=== PATIENT | female | born 1950 | race Caucasian/White ===

== ENCOUNTER 2022-05-29 08:59 | Outpatient (CLI) | payer OTHER, SELFPAY | END 2022-05-29 09:00 | disposition home or self-care (01) | LOC: WOUND 08:59 | PROVIDERS: Family Provider Family Medicine; PCP Family Medicine; Visit Provider Physician Assistant Surgical | DX: I87.312 Chronic venous hypertension (idiopathic) with ulcer of left lower extremity (principal); I87.2 Venous insufficiency (chronic) (peripheral); I89.0 Lymphedema, not elsewhere classified; L97.829 Non-pressure chronic ulcer of other part of left lower leg with unspecified severity | CPT/HCPCS: 99213 ==

== ENCOUNTER 2022-06-19 08:03 | Outpatient (CLI) | payer OTHER, SELFPAY | END 2022-06-19 08:04 | disposition home or self-care (01) | LOC: WOUND 08:03 | PROVIDERS: Visit Provider Physician Assistant Surgical | DX: I87.312 Chronic venous hypertension (idiopathic) with ulcer of left lower extremity (principal); I89.0 Lymphedema, not elsewhere classified; L97.822 Non-pressure chronic ulcer of other part of left lower leg with fat layer exposed | CPT/HCPCS: 11042 ==

== ENCOUNTER 2022-07-10 08:55 | Outpatient (CLI) | payer OTHER, SELFPAY | END 2022-07-10 08:56 | disposition home or self-care (01) | LOC: WOUND 08:56 | PROVIDERS: Visit Provider Physician Assistant Surgical | DX: I87.312 Chronic venous hypertension (idiopathic) with ulcer of left lower extremity (principal); L97.822 Non-pressure chronic ulcer of other part of left lower leg with fat layer exposed | CPT/HCPCS: 11042 ==

== ENCOUNTER 2022-07-28 08:46 | Outpatient (CLI) | payer OTHER, SELFPAY | END 2022-07-28 08:47 | disposition home or self-care (01) | LOC: WOUND 08:46 | PROVIDERS: Visit Provider Nurse Practitioner Family | DX: I87.312 Chronic venous hypertension (idiopathic) with ulcer of left lower extremity (principal); L97.822 Non-pressure chronic ulcer of other part of left lower leg with fat layer exposed; I87.2 Venous insufficiency (chronic) (peripheral); L97.812 Non-pressure chronic ulcer of other part of right lower leg with fat layer exposed | CPT/HCPCS: 11042 ==

== ENCOUNTER 2022-08-18 08:57 | Outpatient (CLI) | payer OTHER, SELFPAY | END 2022-08-18 08:58 | disposition home or self-care (01) | LOC: WOUND 08:57 | PROVIDERS: Visit Provider Nurse Practitioner Family | DX: I87.312 Chronic venous hypertension (idiopathic) with ulcer of left lower extremity (principal); L97.825 Non-pressure chronic ulcer of other part of left lower leg with muscle involvement without evidence of necrosis | CPT/HCPCS: 11042 ==

== ENCOUNTER 2022-09-08 08:53 | Outpatient (CLI) | payer OTHER, SELFPAY | END 2022-09-08 08:54 | disposition home or self-care (01) | LOC: WOUND 08:53 | PROVIDERS: PCP Family Medicine; Visit Provider Physician Assistant Surgical | DX: I87.312 Chronic venous hypertension (idiopathic) with ulcer of left lower extremity (principal); L97.825 Non-pressure chronic ulcer of other part of left lower leg with muscle involvement without evidence of necrosis | CPT/HCPCS: 11043 ==

== ENCOUNTER 2022-09-29 08:45 | Outpatient (CLI) | payer OTHER, SELFPAY | END 2022-09-29 08:46 | disposition home or self-care (01) | LOC: WOUND 08:46 | PROVIDERS: PCP Family Medicine; Visit Provider Nurse Practitioner Family | DX: I87.312 Chronic venous hypertension (idiopathic) with ulcer of left lower extremity (principal); L97.825 Non-pressure chronic ulcer of other part of left lower leg with muscle involvement without evidence of necrosis | CPT/HCPCS: 15271; Q4151 ==

== ENCOUNTER 2022-10-20 09:09 | Outpatient (CLI) | payer OTHER, SELFPAY | END 2022-10-20 09:10 | disposition home or self-care (01) | LOC: WOUND 09:09 | PROVIDERS: PCP Family Medicine; Visit Provider Nurse Practitioner Family | DX: I87.312 Chronic venous hypertension (idiopathic) with ulcer of left lower extremity (principal); L97.822 Non-pressure chronic ulcer of other part of left lower leg with fat layer exposed; I87.2 Venous insufficiency (chronic) (peripheral) | CPT/HCPCS: 11042 ==

== ENCOUNTER 2022-11-03 09:16 | Outpatient (CLI) | payer OTHER, SELFPAY | END 2022-11-03 09:17 | disposition home or self-care (01) | LOC: WOUND 09:16 | PROVIDERS: PCP Family Medicine; Visit Provider Nurse Practitioner Family | DX: I87.312 Chronic venous hypertension (idiopathic) with ulcer of left lower extremity (principal); L97.822 Non-pressure chronic ulcer of other part of left lower leg with fat layer exposed | CPT/HCPCS: 97597 ==

== ENCOUNTER 2022-11-17 08:53 | Outpatient (CLI) | payer OTHER, SELFPAY | END 2022-11-17 08:54 | disposition home or self-care (01) | LOC: WOUND 08:53 | PROVIDERS: PCP Family Medicine; Visit Provider Nurse Practitioner Family | DX: I87.312 Chronic venous hypertension (idiopathic) with ulcer of left lower extremity (principal); L97.822 Non-pressure chronic ulcer of other part of left lower leg with fat layer exposed | CPT/HCPCS: 11042 ==

== ENCOUNTER 2022-12-01 08:51 | Outpatient (CLI) | payer OTHER, SELFPAY | END 2022-12-01 08:52 | disposition home or self-care (01) | LOC: WOUND 08:51 | PROVIDERS: PCP Family Medicine; Visit Provider Nurse Practitioner Family | DX: I87.312 Chronic venous hypertension (idiopathic) with ulcer of left lower extremity (principal); L97.822 Non-pressure chronic ulcer of other part of left lower leg with fat layer exposed; I87.2 Venous insufficiency (chronic) (peripheral); I89.0 Lymphedema, not elsewhere classified | CPT/HCPCS: 11042 ==

== ENCOUNTER 2022-12-15 08:49 | Outpatient (CLI) | payer OTHER, SELFPAY | END 2022-12-15 08:50 | disposition home or self-care (01) | LOC: WOUND 08:49 | PROVIDERS: PCP Family Medicine; Visit Provider Nurse Practitioner Family | DX: I87.312 Chronic venous hypertension (idiopathic) with ulcer of left lower extremity (principal); I87.2 Venous insufficiency (chronic) (peripheral); L97.822 Non-pressure chronic ulcer of other part of left lower leg with fat layer exposed; I89.0 Lymphedema, not elsewhere classified | CPT/HCPCS: 97597 ==

== ENCOUNTER 2023-01-05 09:24 | Outpatient (CLI) | payer OTHER, SELFPAY | END 2023-01-05 09:25 | disposition home or self-care (01) | LOC: WOUND 09:24 | PROVIDERS: PCP Family Medicine; Visit Provider Physician Assistant Surgical | DX: I87.312 Chronic venous hypertension (idiopathic) with ulcer of left lower extremity (principal); L97.822 Non-pressure chronic ulcer of other part of left lower leg with fat layer exposed; I89.0 Lymphedema, not elsewhere classified | CPT/HCPCS: 11042 ==

== ENCOUNTER 2023-01-26 09:23 | Outpatient (CLI) | payer OTHER, SELFPAY ==
[2023-01-26 11:14] LABS: Hemoglobin A1C* 5.63 % (0-5.6)
[2023-01-26 11:38] LABS: Free T4 Free Thyroxine* 2.38 ng/dL (0.70-1.85)
[2023-01-26 11:56] LABS: Ferritin* 20.1 ng/mL (11.1-264.0)
[2023-01-27 14:44] LABS: Thyroid Peroxidase (TPO) Ab 22.9 IU/mL (0.0-9.0)
[2023-01-27 15:03] LABS: Thyroglobulin Antibody <0.9 IU/mL (0.0-4.0); Thyroglobulin, Serum or Plasma 14.7 ng/mL (1.3-31.8)
[2023-01-27 15:04] LABS: Thyroglob Bill Billed
[2023-01-27 18:28] LABS: Prealbumin 12.6 mg/dL (20.0-40.0)
[2023-01-28 07:12] LABS: Free T3 1.3 pg/mL (2.5-4.3)
[2023-01-28 07:20] LABS: Zinc, Serum/Plasma 64.3 ug/dL (60.0-120.0)
[2023-01-29 16:23] LABS: T3 Reverse - LC-MS/MS 46.4 ng/dL (9.0-27.0); T3, Ratio (T3:RT3) 0.7 (4.2-11.0); T3, Total - LC-MS/MS 33 ng/dL (80-200)
== END 2023-01-26 09:24 | disposition home or self-care (01) ==
LOC: WOUND 09:23
PROVIDERS: PCP Family Medicine; Visit Provider Nurse Practitioner Family
DX: I87.312 Chronic venous hypertension (idiopathic) with ulcer of left lower extremity (principal); E11.622 Type 2 diabetes mellitus with other skin ulcer; L97.825 Non-pressure chronic ulcer of other part of left lower leg with muscle involvement without evidence of necrosis; I89.0 Lymphedema, not elsewhere classified; E03.9 Hypothyroidism, unspecified; D69.3 Immune thrombocytopenic purpura; E60 Dietary zinc deficiency
CPT/HCPCS: 11042; 36415; 82728; 83036; 84134; 84432; 84439; 84480; 84481; 84482; 84630; 86376; 86800

== ENCOUNTER 2023-02-02 13:01 | Outpatient (CLI) | payer OTHER, SELFPAY | END 2023-02-02 13:02 | disposition home or self-care (01) | LOC: WOUND 13:01 | PROVIDERS: PCP Family Medicine; Visit Provider Nurse Practitioner Family | DX: I87.312 Chronic venous hypertension (idiopathic) with ulcer of left lower extremity (principal); L97.829 Non-pressure chronic ulcer of other part of left lower leg with unspecified severity; I87.2 Venous insufficiency (chronic) (peripheral); E03.9 Hypothyroidism, unspecified; E60 Dietary zinc deficiency; E61.1 Iron deficiency; E44.1 Mild protein-calorie malnutrition; Z68.41 Body mass index [BMI] 40.0-44.9, adult | CPT/HCPCS: 99213 ==

== ENCOUNTER 2023-02-15 14:55 | Outpatient (CLI) | payer OTHER, SELFPAY ==
--- NOTE | 2023-02-15 15:00 | CRLHL7_ITS ---
For Patients: As a result of the Cures Act, medical imaging exams and procedure reports are released immediately into your electronic medical record. You may view this report before your referring provider. If you have questions, please contact your health care provider. INDICATION: Nonhealing ulcer of left lower extremity. TECHNIQUE: The bilateral lower extremity arteries were examined per exam specific protocol. Ultrasound performed using real-time hayes scale imaging (B-mode 2D), color-flow Doppler and spectral analysis. Peak systolic velocities (PSV), Doppler waveform quality and velocity ratios if applicable, were documented at sites per exam specific protocol. COMPARISON: Doppler ultrasound dated 03/26/22 FINDINGS: RIGHT: BRANCH ADMINISTRATOR: 149 cm/sec; triphasic waveforms PFA: 111 cm/sec; triphasic waveforms SFA PROX: 108 cm/sec; triphasic waveforms SFA MID: 103 cm/sec; triphasic waveforms SFA DIST: 100 cm/sec; triphasic waveforms POP: 94 cm/sec; triphasic waveforms PROPERTY AND SUPPLY OFFICER: 71 cm/sec; triphasic waveforms Peroneal: 54 cm/sec; triphasic waveforms DHIRAJ: 22 cm/sec; monophasic waveforms, previously multiphasic with velocity similar to the posterior tibial and peroneal arteries. DPA: 22 cm/sec; monophasic waveforms LEFT: BRANCH ADMINISTRATOR: 124 cm/sec; triphasic waveforms PFA: 81 cm/sec; triphasic waveforms SFA PROX: 116 cm/sec; triphasic waveforms SFA MID: 94 cm/sec; triphasic waveforms SFA DIST: 89 cm/sec; triphasic waveforms POP: 91 cm/sec; triphasic waveforms PROPERTY AND SUPPLY OFFICER: 78 cm/sec; triphasic waveforms Peroneal: Not seen, unchanged from 2021. DHIRAJ: 29 cm/sec; biphasic waveforms DPA: 20 cm/sec; triphasic waveforms IMPRESSION: 1. On the right, no evidence of arterial occlusion. No sonographic evidence of hemodynamically significant stenosis. Waveforms in the anterior tibial artery were previously multiphasic and are now monophasic otherwise no change from examination in March 2022. 2. On the left, nonvisualization of peroneal artery is unchanged from 2021. Otherwise, no evidence of arterial occlusion or hemodynamically significant stenosis. Dictated by Dylan Zayas MD @ 02/16/2023 11:24:31 AM (Electronically Signed)
== END 2023-02-15 14:56 | disposition home or self-care (01) ==
LOC: US 14:55
PROVIDERS: PCP Family Medicine; Visit Provider Nurse Practitioner Family
DX: L97.909 Non-pressure chronic ulcer of unspecified part of unspecified lower leg with unspecified severity (principal)
CPT/HCPCS: 93926

== ENCOUNTER 2023-02-16 09:18 | Outpatient (CLI) | payer OTHER, SELFPAY | END 2023-02-16 09:19 | disposition home or self-care (01) | LOC: WOUND 09:18 | PROVIDERS: PCP Family Medicine; Visit Provider Nurse Practitioner Family | DX: I87.312 Chronic venous hypertension (idiopathic) with ulcer of left lower extremity (principal); L97.825 Non-pressure chronic ulcer of other part of left lower leg with muscle involvement without evidence of necrosis | CPT/HCPCS: 11042 ==

== ENCOUNTER 2023-03-02 09:22 | Outpatient (CLI) | payer OTHER, SELFPAY | END 2023-03-02 09:23 | disposition home or self-care (01) | LOC: WOUND 09:22 | PROVIDERS: PCP Family Medicine; Visit Provider Nurse Practitioner Family | DX: I87.312 Chronic venous hypertension (idiopathic) with ulcer of left lower extremity (principal); L97.822 Non-pressure chronic ulcer of other part of left lower leg with fat layer exposed; I87.2 Venous insufficiency (chronic) (peripheral); I89.0 Lymphedema, not elsewhere classified | CPT/HCPCS: 11042 ==

== ENCOUNTER 2023-04-13 08:50 | Outpatient (CLI) | payer OTHER, SELFPAY | END 2023-04-13 08:51 | disposition home or self-care (01) | LOC: WOUND 08:50 | PROVIDERS: PCP Family Medicine; Visit Provider Nurse Practitioner Family | DX: I87.312 Chronic venous hypertension (idiopathic) with ulcer of left lower extremity (principal); L97.825 Non-pressure chronic ulcer of other part of left lower leg with muscle involvement without evidence of necrosis; L97.222 Non-pressure chronic ulcer of left calf with fat layer exposed | CPT/HCPCS: 11042; 11043; 99211 ==

== ENCOUNTER 2023-04-20 09:46 | Outpatient (CLI) | payer OTHER, SELFPAY | END 2023-04-20 09:47 | disposition home or self-care (01) | LOC: WOUND 09:47 | PROVIDERS: PCP Family Medicine; Visit Provider Nurse Practitioner Family | DX: L97.825 Non-pressure chronic ulcer of other part of left lower leg with muscle involvement without evidence of necrosis; I87.312 Chronic venous hypertension (idiopathic) with ulcer of left lower extremity; I89.0 Lymphedema, not elsewhere classified | CPT/HCPCS: 11042 ==

== ENCOUNTER 2023-05-18 08:49 | Outpatient (CLI) | payer OTHER, SELFPAY | END 2023-05-18 08:50 | disposition home or self-care (01) | LOC: WOUND 08:49 | PROVIDERS: PCP Family Medicine; Visit Provider Nurse Practitioner Family | DX: I87.312 Chronic venous hypertension (idiopathic) with ulcer of left lower extremity (principal); L97.825 Non-pressure chronic ulcer of other part of left lower leg with muscle involvement without evidence of necrosis | CPT/HCPCS: 11043 ==

== ENCOUNTER 2023-06-08 08:46 | Outpatient (CLI) | payer OTHER, SELFPAY | END 2023-06-08 08:47 | disposition home or self-care (01) | LOC: WOUND 08:47 | PROVIDERS: PCP Family Medicine; Visit Provider Nurse Practitioner Family | DX: I87.312 Chronic venous hypertension (idiopathic) with ulcer of left lower extremity (principal); L97.825 Non-pressure chronic ulcer of other part of left lower leg with muscle involvement without evidence of necrosis | CPT/HCPCS: 11043 ==

== ENCOUNTER 2023-06-29 08:45 | Outpatient (CLI) | payer OTHER, SELFPAY | END 2023-06-29 08:46 | disposition home or self-care (01) | LOC: WOUND 08:45 | PROVIDERS: PCP Family Medicine; Visit Provider Nurse Practitioner Family | DX: I87.312 Chronic venous hypertension (idiopathic) with ulcer of left lower extremity (principal); L97.825 Non-pressure chronic ulcer of other part of left lower leg with muscle involvement without evidence of necrosis; I89.0 Lymphedema, not elsewhere classified | CPT/HCPCS: 11042 ==

== ENCOUNTER 2023-07-20 08:53 | Outpatient (CLI) | payer OTHER, SELFPAY | END 2023-07-20 08:54 | disposition home or self-care (01) | LOC: WOUND 08:53 | PROVIDERS: PCP Family Medicine; Visit Provider Nurse Practitioner Family | DX: I87.312 Chronic venous hypertension (idiopathic) with ulcer of left lower extremity (principal); L97.822 Non-pressure chronic ulcer of other part of left lower leg with fat layer exposed; I89.0 Lymphedema, not elsewhere classified | CPT/HCPCS: 11042 ==

== ENCOUNTER 2023-08-10 09:22 | Outpatient (CLI) | payer OTHER, SELFPAY | END 2023-08-10 09:23 | disposition home or self-care (01) | LOC: WOUND 09:22 | PROVIDERS: PCP Family Medicine; Visit Provider Nurse Practitioner Family | DX: I87.312 Chronic venous hypertension (idiopathic) with ulcer of left lower extremity (principal); E11.622 Type 2 diabetes mellitus with other skin ulcer; L97.822 Non-pressure chronic ulcer of other part of left lower leg with fat layer exposed; I89.0 Lymphedema, not elsewhere classified | CPT/HCPCS: 11042 ==

== ENCOUNTER 2023-08-31 08:53 | Outpatient (CLI) | payer OTHER, SELFPAY | END 2023-08-31 08:54 | disposition home or self-care (01) | LOC: WOUND 08:53 | PROVIDERS: PCP Family Medicine; Visit Provider Nurse Practitioner Family | DX: I87.312 Chronic venous hypertension (idiopathic) with ulcer of left lower extremity (principal); L97.822 Non-pressure chronic ulcer of other part of left lower leg with fat layer exposed | CPT/HCPCS: 97597 ==

== ENCOUNTER 2023-09-21 08:56 | Outpatient (CLI) | payer OTHER, SELFPAY | END 2023-09-21 08:57 | disposition home or self-care (01) | LOC: WOUND 08:56 | PROVIDERS: PCP Family Medicine; Visit Provider Family Medicine | DX: I87.312 Chronic venous hypertension (idiopathic) with ulcer of left lower extremity (principal); L97.822 Non-pressure chronic ulcer of other part of left lower leg with fat layer exposed | CPT/HCPCS: 97597 ==

== ENCOUNTER 2023-10-12 08:55 | Outpatient (CLI) | payer OTHER, SELFPAY | END 2023-10-12 08:56 | disposition home or self-care (01) | LOC: WOUND 08:55 | PROVIDERS: PCP Family Medicine; Visit Provider Nurse Practitioner Family | DX: I87.312 Chronic venous hypertension (idiopathic) with ulcer of left lower extremity (principal); L97.822 Non-pressure chronic ulcer of other part of left lower leg with fat layer exposed; I89.0 Lymphedema, not elsewhere classified | CPT/HCPCS: 97597 ==

== ENCOUNTER 2023-11-02 08:52 | Outpatient (CLI) | payer OTHER, SELFPAY | END 2023-11-02 08:53 | disposition home or self-care (01) | LOC: WOUND 08:52 | PROVIDERS: PCP Family Medicine; Visit Provider Family Medicine | DX: I87.312 Chronic venous hypertension (idiopathic) with ulcer of left lower extremity (principal); I87.2 Venous insufficiency (chronic) (peripheral); L97.822 Non-pressure chronic ulcer of other part of left lower leg with fat layer exposed | CPT/HCPCS: 11042 ==

== ENCOUNTER 2023-11-23 09:03 | Outpatient (CLI) | payer OTHER, SELFPAY | END 2023-11-23 09:04 | disposition home or self-care (01) | LOC: WOUND 09:04 | PROVIDERS: PCP Family Medicine; Visit Provider Nurse Practitioner Family | DX: I87.312 Chronic venous hypertension (idiopathic) with ulcer of left lower extremity (principal); L97.822 Non-pressure chronic ulcer of other part of left lower leg with fat layer exposed | CPT/HCPCS: 97597 ==

== ENCOUNTER 2023-12-21 09:01 | Outpatient (CLI) | payer OTHER, SELFPAY | END 2023-12-21 09:02 | disposition home or self-care (01) | LOC: WOUND 09:01 | PROVIDERS: PCP Family Medicine; Visit Provider Physician Assistant | DX: I87.312 Chronic venous hypertension (idiopathic) with ulcer of left lower extremity (principal); E11.622 Type 2 diabetes mellitus with other skin ulcer; L97.822 Non-pressure chronic ulcer of other part of left lower leg with fat layer exposed; Z79.84 Long term (current) use of oral hypoglycemic drugs | CPT/HCPCS: 97597 ==

== ENCOUNTER 2023-12-28 10:30 | Outpatient (RCR) | payer OTHER, SELFPAY | END 2024-04-26 23:59 | disposition home or self-care (01) | PROVIDERS: PCP Family Medicine; Visit Provider Nurse Practitioner Family | DX: I89.0 Lymphedema, not elsewhere classified (principal); L98.499 Non-pressure chronic ulcer of skin of other sites with unspecified severity; Z51.89 Encounter for other specified aftercare | CPT/HCPCS: 97140; 97165; 97535 ==

== ENCOUNTER 2024-01-18 09:01 | Outpatient (CLI) | payer OTHER, SELFPAY | END 2024-01-18 09:02 | disposition home or self-care (01) | LOC: WOUND 09:01 | PROVIDERS: PCP Family Medicine; Visit Provider Nurse Practitioner Family | DX: I87.312 Chronic venous hypertension (idiopathic) with ulcer of left lower extremity (principal); I87.2 Venous insufficiency (chronic) (peripheral); L97.822 Non-pressure chronic ulcer of other part of left lower leg with fat layer exposed; I89.0 Lymphedema, not elsewhere classified | CPT/HCPCS: 11042 ==

== ENCOUNTER 2024-03-14 08:49 | Outpatient (CLI) | payer OTHER, SELFPAY | END 2024-03-14 08:50 | disposition home or self-care (01) | LOC: WOUND 08:49 | PROVIDERS: PCP Family Medicine; Visit Provider Nurse Practitioner Family | DX: I87.312 Chronic venous hypertension (idiopathic) with ulcer of left lower extremity (principal); I87.2 Venous insufficiency (chronic) (peripheral); L97.822 Non-pressure chronic ulcer of other part of left lower leg with fat layer exposed | CPT/HCPCS: 97597 ==

== ENCOUNTER 2024-04-11 08:48 | Outpatient (CLI) | payer OTHER, SELFPAY | END 2024-04-11 08:49 | disposition home or self-care (01) | LOC: WOUND 08:48 | PROVIDERS: PCP Family Medicine; Visit Provider Nurse Practitioner Family | DX: I87.312 Chronic venous hypertension (idiopathic) with ulcer of left lower extremity (principal); I87.2 Venous insufficiency (chronic) (peripheral); L97.822 Non-pressure chronic ulcer of other part of left lower leg with fat layer exposed | CPT/HCPCS: 97597 ==

== ENCOUNTER 2024-05-01 13:10 | Outpatient (CLI) | payer OTHER, SELFPAY | END 2024-05-01 13:11 | disposition home or self-care (01) | LOC: WOUND 13:10 | PROVIDERS: PCP Family Medicine; Visit Provider Nurse Practitioner Family | DX: I87.312 Chronic venous hypertension (idiopathic) with ulcer of left lower extremity (principal); I87.2 Venous insufficiency (chronic) (peripheral); L97.822 Non-pressure chronic ulcer of other part of left lower leg with fat layer exposed | CPT/HCPCS: 97597 ==

== ENCOUNTER 2024-05-23 10:23 | Outpatient (CLI) | payer OTHER, SELFPAY | END 2024-05-23 10:24 | disposition home or self-care (01) | LOC: WOUND 10:23 | PROVIDERS: PCP Family Medicine; Visit Provider Nurse Practitioner Family | DX: I87.312 Chronic venous hypertension (idiopathic) with ulcer of left lower extremity (principal); I87.2 Venous insufficiency (chronic) (peripheral); L97.822 Non-pressure chronic ulcer of other part of left lower leg with fat layer exposed | CPT/HCPCS: 97597 ==

== ENCOUNTER 2024-06-13 09:29 | Outpatient (CLI) | payer OTHER, SELFPAY | END 2024-06-13 09:30 | disposition home or self-care (01) | LOC: WOUND 09:29 | PROVIDERS: PCP Family Medicine; Visit Provider Nurse Practitioner Family | DX: I87.312 Chronic venous hypertension (idiopathic) with ulcer of left lower extremity (principal); I87.2 Venous insufficiency (chronic) (peripheral); L97.822 Non-pressure chronic ulcer of other part of left lower leg with fat layer exposed | CPT/HCPCS: 11042 ==

== ENCOUNTER 2024-07-04 09:42 | Outpatient (CLI) | payer OTHER, SELFPAY | END 2024-07-04 09:43 | disposition home or self-care (01) | LOC: WOUND 09:42 | PROVIDERS: PCP Family Medicine; Visit Provider Nurse Practitioner Family | DX: I87.312 Chronic venous hypertension (idiopathic) with ulcer of left lower extremity (principal); L97.828 Non-pressure chronic ulcer of other part of left lower leg with other specified severity; I89.0 Lymphedema, not elsewhere classified | CPT/HCPCS: 11042 ==

== ENCOUNTER 2024-08-22 13:49 | Outpatient (CLI) | payer OTHER, SELFPAY | END 2024-08-22 13:50 | disposition home or self-care (01) | LOC: WOUND 13:49 | PROVIDERS: PCP Family Medicine; Visit Provider Nurse Practitioner Family | DX: I87.312 Chronic venous hypertension (idiopathic) with ulcer of left lower extremity (principal); I87.2 Venous insufficiency (chronic) (peripheral); I89.0 Lymphedema, not elsewhere classified; L97.822 Non-pressure chronic ulcer of other part of left lower leg with fat layer exposed | CPT/HCPCS: 97597 ==

== ENCOUNTER 2024-09-19 13:59 | Outpatient (CLI) | payer OTHER, SELFPAY | END 2024-09-19 14:00 | disposition home or self-care (01) | LOC: WOUND 13:59 | PROVIDERS: PCP Family Medicine; Visit Provider Family Medicine | DX: I87.312 Chronic venous hypertension (idiopathic) with ulcer of left lower extremity (principal); I87.2 Venous insufficiency (chronic) (peripheral); I89.0 Lymphedema, not elsewhere classified; E11.622 Type 2 diabetes mellitus with other skin ulcer; L97.828 Non-pressure chronic ulcer of other part of left lower leg with other specified severity | CPT/HCPCS: 11042 ==

== ENCOUNTER 2024-09-26 09:25 | Outpatient (CLI) | payer OTHER, SELFPAY | END 2024-09-26 09:26 | disposition home or self-care (01) | LOC: WOUND 09:25 | PROVIDERS: PCP Family Medicine; Visit Provider Nurse Practitioner Family | DX: I87.312 Chronic venous hypertension (idiopathic) with ulcer of left lower extremity (principal); I87.2 Venous insufficiency (chronic) (peripheral); I89.0 Lymphedema, not elsewhere classified; L97.828 Non-pressure chronic ulcer of other part of left lower leg with other specified severity | CPT/HCPCS: 11042 ==

== ENCOUNTER 2024-10-03 09:27 | Outpatient (CLI) | payer OTHER, SELFPAY | END 2024-10-03 09:28 | disposition home or self-care (01) | LOC: WOUND 09:27 | PROVIDERS: PCP Family Medicine; Visit Provider Nurse Practitioner Family | DX: I87.312 Chronic venous hypertension (idiopathic) with ulcer of left lower extremity (principal); I87.2 Venous insufficiency (chronic) (peripheral); I89.0 Lymphedema, not elsewhere classified; L97.828 Non-pressure chronic ulcer of other part of left lower leg with other specified severity | CPT/HCPCS: 97597 ==

== ENCOUNTER 2024-10-10 09:25 | Outpatient (CLI) | payer OTHER, SELFPAY | END 2024-10-10 09:26 | disposition home or self-care (01) | LOC: WOUND 09:25 | PROVIDERS: PCP Family Medicine; Visit Provider Nurse Practitioner Family | DX: Z48.00 Encounter for change or removal of nonsurgical wound dressing (principal); I87.312 Chronic venous hypertension (idiopathic) with ulcer of left lower extremity; I87.2 Venous insufficiency (chronic) (peripheral); I89.0 Lymphedema, not elsewhere classified; L97.822 Non-pressure chronic ulcer of other part of left lower leg with fat layer exposed | CPT/HCPCS: G0463 ==

== ENCOUNTER 2024-11-06 15:18 | Outpatient (CLI) | payer OTHER, SELFPAY | END 2024-11-06 15:19 | disposition home or self-care (01) | PROVIDERS: PCP Family Medicine; Visit Provider Nurse Practitioner Family | DX: I87.312 Chronic venous hypertension (idiopathic) with ulcer of left lower extremity (principal); I87.2 Venous insufficiency (chronic) (peripheral); I89.0 Lymphedema, not elsewhere classified; L97.822 Non-pressure chronic ulcer of other part of left lower leg with fat layer exposed | CPT/HCPCS: 11042 ==

== ENCOUNTER 2024-11-27 09:31 | Outpatient (CLI) | payer MEDICARE, BC, SELFPAY ==
--- OUTSIDE RECORDS SUMMARY | 2024-11-09 15:43 | XMS_ITS | Clinical Summary ---
Author Organization [facility] Address [place], [place] [address] Care Team Providers Care Thread Spooler Name Role Phone [facility] Jermaine Fong Unavailable Neetu Villa MD Unavailable [phone] Krystyna Monique NP Unavailable Jolynn Shaffer DO Primary Care Provider [phone] Allergies Active Allergy Reactions Criticality Noted Date Comments Blood-Group Specific Substance Other - Describe In Comment Field 01/07/2022 Patient has a Suggestive Warm Auto-antibody. Blood products may be delayed. Draw patient 24 hours prior to transfusion. For [facility] testing, draw one red top and two purple top tubes for all Type and Screen orders. Metoprolol Other - Describe In Comment Field 07/23/2023 Gait Imbalance Sulfamethoxazole-Trim ethoprim GI Upset 03/25/2021 Medications blood-glucose meterIndications:T ype 2 diabetes mellitus without complication, without long-term current use of insulin (HC) Prefers True Meter Air. but if not covered, please Dispense meter covered by pts insurance. 1 Each 024 Active blood sugar diagnostic (True Metrix Glucose Test Strip) stripIndications:T ype 2 diabetes mellitus without complication, without long-term current use of insulin (HC) TEST 1 TIME PER DAY AND NEEDED BASED ON SYMPTOMS. 200 Each 3 024 Active flecainide (TAMBOCOR) 50 mg tabletIndications: Persistent atrial fibrillation (HC) Take 1 Tablet (50 mg) by mouth every 12 hours. 180 Tablet 3 024 Active famotidine (PEPCID) 20 mg tabletIndications: Gastric acidity TAKE ONE TABLET BY MOUTH TWICE A DAY 180 Tablet 2 024 Active furosemide (LASIX) 20 mg tabletIndications: Swelling of lower extremity TAKE ONE TABLET BY MOUTH EVERY DAY NEEDED FOR INCREASED LOWER EXTREMITY EDEMA OR WEIGHT GAIN 90 Tablet 1 024 Active Additional Information Patient taking differently: 20 mg Oral Q AM, (No instructions reported), Reported on 11/07/2024 levothyroxine (SYNTHROID) 88 mcg tabletIndications: Acquired hypothyroidism Take 1 Tablet (88 mcg) by mouth before breakfast. 90 Tablet 1 024 Active rosuvastatin (CRESTOR) 20 mg tabletIndications: Mixed hyperlipidemia Take 1 Tablet (20 mg) by mouth at bedtime. 90 Tablet 1 024 Active spironolactone (ALDACTONE) 50 mg tabletIndications: Hepatic cirrhosis, unspecified hepatic cirrhosis type, unspecified whether ascites present (HC) Take 1 Tablet (50 mg) by mouth once daily in the morning. 90 Tablet 1 024 Active folic acid 1 mg tabletIndications: Chronic ITP (idiopathic thrombocytopenia) (HC),Christian's syndrome (HC) Take 1 Tablet (1 mg) by mouth once daily. 30 Tablet 11 024 Active metFORMIN (GLUCOPHAGE XR) 500 mg Extended-Release tabletIndications: Type 2 diabetes mellitus without complication, without long-term current use of insulin (HC) TAKE ONE TABLET BY MOUTH EVERY DAY WITH A MEAL 90 Tablet 024 Active lactulose 10 gram/15 mL solutionIndication s:Hepatic cirrhosis, unspecified hepatic cirrhosis type, unspecified whether ascites present (HC) Take 15 mL (10 g) by mouth four times daily. Goal is to have 3 loose stools per day, can adjust the dose accordingly. You may take an additional 2 doses daily if you there is no loose stools. 946 mL 2 024 Active midodrine (PROAMATINE) 5 mg tabletIndications: Other cirrhosis of liver (HC) Take 1 Tablet (5 mg) by mouth three times daily. 90 Tablet 3 Active lactulose 10 gram/15 mL solutionIndication s:Hepatic cirrhosis, unspecified hepatic cirrhosis type, unspecified whether ascites present (HC) Take 15 mL (10 g) by mouth three times daily. Goal is to have 3 loose stools per day, can adjust the dose accordingly. 946 mL 07/25/20 5:24 PM CDT 2023 Discontinued apixaban (ELIQUIS) 5 mg tabletIndications: prevent thromboembolism in chronic atrial fibrillation Take 1 Tablet (5 mg) by mouth two times daily. 180 Tablet 1 2023 Discontinued(* IP Discontinued) cephalexin 500 mg capsuleIndications :urinary tract infection Take 1 Capsule (500 mg) by mouth two times daily for 3 days. 6 Capsule 2023 Active Problems Problem Noted Date Diagnosed Date Other cirrhosis of liver 10/19/2024 Acute cystitis without hematuria 10/18/2024 Acute renal insufficiency 07/23/2024 Pancytopenia 07/23/2024 Sepsis with acute organ dysfunction without sept ic shock 07/22/2024 Sepsis secondary to UTI 07/22/2024 Moderate dementia 07/22/2024 Non-pressure chronic ulcer o f other part of left lower leg with muscle involvement without evidence of necrosis 05/04/2024 Acute cystitis with hematuria 03/14/2024 Hypokalemia 03/14/2024 Anemia 10/25/2023 Iron deficiency 09/28/2023 Venous stasis ulcer of other part of left lower leg with varicose veins, unspecified ulcer stage 02/11/2023 Morbid obesity 02/11/2023 Pacemaker 04/16/2022 Lymphedema 03/15/2022 Immune thrombocytopenia s/p bone marrow biopsy 0 03/15/2022 Atrial fibrillation 01/30/2022 Thrombocyte disorder 01/30/2022 Atrial flutter 01/06/2022 HTN (hypertension) 01/06/2022 Type 2 diabetes mellitus wit hout complication, without long-term current use of insulin 01/06/2022 Acquired hypothyroidism 01/06/2022 Chronic ITP (idiopathic thrombocytopenia) Pelvic hematoma, female Encounters Date Type Department Care Team Description 11/09/2024 Refill [facility] [address] [place] [address] Neetu Villa MD Refill Request (Folic Acid) 11/07/2024 11:57 AM CERTIFIED DRUG COUNSELOR - 11/07/2024 11:59 PM CERTIFIED DRUG COUNSELOR Hospital Encounter [facility] [address] [place] [address] Urinary tract infection without hematuria, site unspecified 11/07/2024 10:45 AM CERTIFIED DRUG COUNSELOR Office Visit [facility] [address] [place] [address] Krystyna Monique, LUIS Follow Up (ITP) 11/07/2024 Travel 11/06/2024 Telephone [facility] [address] [place] [address] Krystyna Monique, OLERICULTURE TEACHER Appointment 11/02/2024 9:24 AM CERTIFIED DRUG COUNSELOR - 11/02/2024 11:59 PM CERTIFIED DRUG COUNSELOR Hospital Encounter [facility] [address] [place] [address] Neetu Villa MD Chronic ITP (idiopathic thrombocytopenia) (HC); Christian's syndrome (HC) 11/02/2024 Travel 10/31/2024 8:52 AM CERTIFIED DRUG COUNSELOR - 10/31/2024 11:59 PM CERTIFIED DRUG COUNSELOR Hospital Encounter [facility] [address] [place] [address] Category 3 mammography result with short follow-up interval suggested for probably benign finding 10/31/2024 Travel 10/30/2024 Telephone [facility] [place] [address] [place] [phone] Gerardo Brooks MD Care Coordination 10/27/[address] [address] Jolynn Shaffer, DO Results 10/26/2024 9:45 AM CERTIFIED DRUG COUNSELOR Office Visit [place] [address] [place] [address] Jolynn Shaffer DO Hospital F/U (10/18/2024 - 10/22/2024) 10/26/2024 Travel 10/23/2024 Patient Outreach [facility] [address] [place] [address] Aida Coyne, QASIM Primary RN Care Management; Hospital F/U (DOD: 10/22/24, DX: Acute cystitis without hematuria, LACE: 81) 10/18/2024 11:26 AM CERTIFIED DRUG COUNSELOR - 10/22/2024 11:49 AM CERTIFIED DRUG COUNSELOR Hospital Encounter [facility] [address] [place] [address] Dylan Melendez MD [place], DO Lara Frias Samantha Frances, LUIS Bautista, Zbigniew Cortez, LUIS Urinary tract infection without hematuria, site unspecified (Primary Dx); Weakness; Non-pressure chronic ulcer of other part of left lower leg with muscle involvement without evidence of necrosis (HC); Venous stasis ulcer of other part of left lower leg with varicose veins, unspecified ulcer stage (HC); Hepatic cirrhosis, unspecified hepatic cirrhosis type, unspecified whether ascites present (HC); Other cirrhosis of liver (HC) Discharge Disposition: Home Self Care 10/18/2024 Travel 09/20/2024 Refill [facility] [address] [place] [address] Jolynn Shaffer DO Refill Request (Metformin) from Last 3 Months Immunizations Name Administration Dates Next Due DT (Age < 7 years) 09/28/2006 Influenza, IIV3 (Age >=3 years) 10/10/2008 Pneumococcal Conj 20-valent (Prevnar 20) 024 Pneumococcal Poly,23-Valent (Pneumovax) 10/10/20 08 Tdap 09/09/2016 Zoster (Zostavax-ZVL, live) 10/31/2012, 2 Family History Medical History Relation Name Comments Good Health Father Good Health Mother Relation Name Status Comments Father Mother Social History Tobacco Use Types Packs/Day Years Used Date Smoking Tobacco: Never Passive Smoke Exposure: Never Smokeless Tobacco: Never Tobacco Cessation:Counseling Given: Not Answered Alcohol Use Standard Drinks/Week Comments Never 0 (1 standard drink = 0.6 oz pur e alcohol) [facility] Utilities Answer Date Recorded Do you have trouble paying f or utilities (for example, heat, electricity, water, phone)? Yes 10/18/2024 PHQ-2 Answer Date Recorded PHQ-2 TOTAL SCORE 0 12/15/2023 Social Connections Answer Date Recorded Do you often feel lonely or isolated from those around you? 0 10/18/2024 Financial Resource Strain Answer Date R ecorded Difficulty of Paying Living Expenses 3 10/14/2023 Difficulty of Paying Living Expenses Not on file 10/14/2023 Food Insecurity Answer Date Recorded Do you worry your food will run out before you are able to buy more? 1 10/18/2024 Transportation Needs Answer Date Record ed Does lack of transportation keep you from medica l appointments? 1 10/18/2024 Does lack of transportation keep you from work, meetings or getting things that you need? 1 10/18/2024 Housing Stability Answer Date Recorded What is your housing situation today? 1 10/18/2024 Interpersonal Safety Answer Date Record ed Are you being hit, kicked, p ushed or yelled at (see row info)? No 10/18/2024 Interpersonal Safety Abuse 12 - 18 Not on file 10/18/2024 Interpersonal Safety Ambulatory Vulnerability No t on file 10/18/2024 Comments No Sex and Gender Information Value Date Recorded Sex Assigned at Female 07/22/2024 9:33 AM CDT Legal Sex Female 5:22 AM CERTIFIED DRUG COUNSELOR Gender Identity Female 07/22/2024 9:33 AM CDT Sexual Orientation Straight 07/22/2024 9: 33 AM CDT Obstetrics History Para Term AB IAB SAB Ectopic Multiple Livin g Live Births 0 0 0 0 0 0 0 0 0 0 0 Comments Has 1 adopted daughter. Last Filed Vital Signs Vital Sign Reading Time Taken Comments Blood Pressure 118/56 11/07/2024 10:41 AM CERTIFIED DRUG COUNSELOR Pulse 82 11/07/2024 10:41 AM CERTIFIED DRUG COUNSELOR Temperature 36.4 C (97.6 F) 11/07/2024 10:41 AM CERTIFIED DRUG COUNSELOR Respiratory Rate 18 11/07/2024 10:41 AM CERTIFIED DRUG COUNSELOR Oxygen Saturation 100% 11/07/2024 10:41 AM CERTIFIED DRUG COUNSELOR Inhaled Oxygen Concentration - - Weight 84.2 kg (185 lb 9.6 oz) 11/07/2024 10:41 AM CERTIFIED DRUG COUNSELOR Height 157.5 cm (5' 2) 10/18/2024 10:35 AM CERTIFIED DRUG COUNSELOR Body Mass Index 33.95 10/18/2024 10:35 AM CERTIFIED DRUG COUNSELOR Plan of Treatment Upcoming Encounters Date Type Department Care Team (Late st Contact Info) Description 12/07/2024 10:00 AM CERTIFIED DRUG COUNSELOR Office Visit [facility] [address] [place] [address] Sharon Escobar PA [address] [facility] [address] [place] [address] 02/14/2025 1:30 PM CDT Cardiac Device Check [facility] [address] [place] [address] Health Maintenance Due Date Last Done Comments RSV vaccine for adults or (1 - Risk 60-74 years 1-dose series) 2012 Zoster (shingles) series for age 50+ (2 of 3) 12/26/2012 10/31/2012, 04/08/2012 Fecal testing non-DNA (FIT,FOBT,iFOBT) for age 45-75 06/12/2024 06/12/2023, 03/22/2022 COVID-19 vaccine series (2023- season) 2024 10/21/2021, 02/14/2021, 01/24/2021 Influenza for age 65+ 07/09/2024 10/10/2008 Depression screening for age 12+ 12/15/2024 12/15/2023, 12/14/2023, 05/28/2022, Additional history exists Medicare Wellness for age 65+ 12/15/2024 12/15/2023, 05/28/2022 BMI (ht and wt on same day) for age 18+ 02/21/2025 02/22/2024, 12/15/2023, 03/09/2023, Additional history exists Mammogram for age 45-75 10/31/2025 10/31/20, 10/06/2023, 06/29/2023 Tetanus booster 09/09/2026 09/09/2016 Lipids for age 45-75 05/28/2027 05/28/2022, 01/13/20 Tdap Completed 09/09/2016 DEXA/DXA scan for age 65+ Completed 09/15/2023 Hepatitis C screening for ag e 18-79 Completed 12/15/2023 Pneumococcal series for age 50+ Completed , 10/10/2008 Procedures Procedure Name Priority Date/Time Associated Diagnosis Comments UA W/ SEDIMENT EXAM REFLEXED PER CRITERIA Today 11/07/2024 11:45 AM CERTIFIED DRUG COUNSELOR Urinary tract infection without hematuria, site unspecified RED CELL MORPHOLOGY Timed 11/02/2024 9 :30 AM CERTIFIED DRUG COUNSELOR Chronic ITP (idiopathic thrombocytopenia) (HC) Christian's syndrome (HC) PLATELET ESTIMATE Timed 11/02/2024 9:3 0 AM CERTIFIED DRUG COUNSELOR Chronic ITP (idiopathic thrombocytopenia) (HC) Christian's syndrome (HC) CBC WITH AUTO DIFFERENTIAL Timed 11/02/2024 9:30 AM CERTIFIED DRUG COUNSELOR Chronic ITP (idiopathic thrombocytopenia) (HC) Christian's syndrome (HC) IRON PLUS IRON BINDING CAP Today 11/02/2024 9:30 AM CERTIFIED DRUG COUNSELOR Chronic ITP (idiopathic thrombocytopenia) (HC) Christian's syndrome (HC) FERRITIN Today 11/02/2024 9:30 AM CERTIFIED DRUG COUNSELOR Chronic ITP (idiopathic thrombocytopenia) (HC) Christian's syndrome (HC) RETICULOCYTES Today 11/02/2024 9:30 AM CERTIFIED DRUG COUNSELOR Chronic ITP (idiopathic thrombocytopenia) (HC) Christian's syndrome (HC) HAPTOGLOBIN Today 11/02/2024 9:30 AM CERTIFIED DRUG COUNSELOR Chronic ITP (idiopathic thrombocytopenia) (HC) Christian's syndrome (HC) LD,TOTAL Today 11/02/2024 9:30 AM CERTIFIED DRUG COUNSELOR Chronic ITP (idiopathic thrombocytopenia) (HC) Christian's syndrome (HC) COMP METABOLIC PANEL Today 11/02/2024 9:30 AM CERTIFIED DRUG COUNSELOR Chronic ITP (idiopathic thrombocytopenia) (HC) Chrisitan's syndrome (HC) CBC WITH AUTO DIFFERENTIAL Today 11/02/2024 9:30 AM CERTIFIED DRUG COUNSELOR Chronic ITP (idiopathic thrombocytopenia) (HC) Christian's syndrome (HC) XR MAMMO ANTONIO BILAT DIAG Routine 10/31/2024 9:15 AM CERTIFIED DRUG COUNSELOR Category 3 mammography result with short follow-up interval suggested for probably benign finding URINALYSIS MICROSCOPIC Routine 10/26/2024 11:32 AM CERTIFIED DRUG COUNSELOR UTI (urinary tract infection), uncomplicated UA W/ SEDIMENT EXAM REFLEXED PER CRITERIA Routine 10/26/2024 11:32 AM CERTIFIED DRUG COUNSELOR UTI (urinary tract infection), uncomplicated AMMONIA Routine 10/26/2024 11:19 AM CERTIFIED DRUG COUNSELOR Other cirrhosis of liver (HC) Increased ammonia level BASIC METABOLIC PANEL Routine 10/26/2024 11:19 AM CERTIFIED DRUG COUNSELOR HTN (hypertension) CBC WITH AUTO DIFFERENTIAL Routine 10/26/2024 11:19 AM CERTIFIED DRUG COUNSELOR Chronic ITP (idiopathic thrombocytopenia) (HC) HEPATIC FUNCTION PANEL Routine 10/26/2024 11:19 AM CERTIFIED DRUG COUNSELOR Other cirrhosis of liver (HC) GLUCOSE METER Routine 10/22/2024 9:00 AM CERTIFIED DRUG COUNSELOR BASIC METABOLIC PANEL STAT 10/22/2024 5:12 AM CERTIFIED DRUG COUNSELOR CBC W PLT NO DIFF STAT 10/22/2024 5:1 2 AM CERTIFIED DRUG COUNSELOR AMMONIA Early AM 10/22/2024 5:12 AM CERTIFIED DRUG COUNSELOR MAGNESIUM Early AM 10/22/2024 5:12 AM CERTIFIED DRUG COUNSELOR GLUCOSE METER Routine 10/22/2024 1:52 AM CERTIFIED DRUG COUNSELOR GLUCOSE METER Routine 10/21/2024 9:17 PM CERTIFIED DRUG COUNSELOR GLUCOSE METER Routine 10/21/2024 5:12 PM CERTIFIED DRUG COUNSELOR GLUCOSE METER Routine 10/21/2024 3:33 PM CERTIFIED DRUG COUNSELOR GLUCOSE METER Routine 10/21/2024 8:59 AM CERTIFIED DRUG COUNSELOR PLATELET COUNT STEVEN 10/21/2024 6:51 AM CERTIFIED DRUG COUNSELOR AMMONIA Early AM 10/21/2024 6:51 AM CERTIFIED DRUG COUNSELOR HEMOGLOBIN Early AM 10/21/2024 6:51 AM CERTIFIED DRUG COUNSELOR CREATININE Early AM 10/21/2024 6:51 AM CERTIFIED DRUG COUNSELOR SODIUM Early AM 10/21/2024 6:51 AM CERTIFIED DRUG COUNSELOR POTASSIUM Early AM 10/21/2024 6:51 AM CERTIFIED DRUG COUNSELOR MAGNESIUM Early AM 10/21/2024 6:51 AM CERTIFIED DRUG COUNSELOR GLUCOSE METER Routine 10/21/2024 1:35 AM CERTIFIED DRUG COUNSELOR GLUCOSE METER Routine 10/20/2024 9:14 PM CERTIFIED DRUG COUNSELOR GLUCOSE METER Routine 10/20/2024 6:03 PM CERTIFIED DRUG COUNSELOR GLUCOSE METER Routine 10/20/2024 12:17 PM CERTIFIED DRUG COUNSELOR GLUCOSE METER Routine 10/20/2024 8:18 AM CERTIFIED DRUG COUNSELOR HEMOGLOBIN Early AM 10/20/2024 5:54 AM CERTIFIED DRUG COUNSELOR AMMONIA Early AM 10/20/2024 5:54 AM CERTIFIED DRUG COUNSELOR CREATININE Early AM 10/20/2024 5:54 AM CERTIFIED DRUG COUNSELOR SODIUM Early AM 10/20/2024 5:54 AM CERTIFIED DRUG COUNSELOR POTASSIUM Early AM 10/20/2024 5:54 AM CERTIFIED DRUG COUNSELOR MAGNESIUM Early AM 10/20/2024 5:54 AM CERTIFIED DRUG COUNSELOR GLUCOSE METER Routine 10/20/2024 2:20 AM CERTIFIED DRUG COUNSELOR GLUCOSE METER Routine 10/19/2024 9:07 PM CERTIFIED DRUG COUNSELOR GLUCOSE METER Routine 10/19/2024 5:37 PM CERTIFIED DRUG COUNSELOR BLOOD CULTURE STAT 10/19/2024 5:30 PM CERTIFIED DRUG COUNSELOR MRSA/SA PCR Today 10/19/2024 5:12 PM CERTIFIED DRUG COUNSELOR BLOOD CULTURE STAT 10/19/2024 5:11 PM CERTIFIED DRUG COUNSELOR GLUCOSE METER Routine 10/19/2024 2:37 PM CERTIFIED DRUG COUNSELOR HEMOGLOBIN Today 10/19/2024 2:26 PM CERTIFIED DRUG COUNSELOR GLUCOSE METER Routine 10/19/2024 8:57 AM CERTIFIED DRUG COUNSELOR PLATELET COUNT Early AM 10/19/2024 6:15 AM CERTIFIED DRUG COUNSELOR HEMOGLOBIN Early AM 10/19/2024 6:15 AM CERTIFIED DRUG COUNSELOR WHITE BLOOD COUNT Early AM 10/19/2024 6:1 5 AM CERTIFIED DRUG COUNSELOR MAGNESIUM Early AM 10/19/2024 6:15 AM CERTIFIED DRUG COUNSELOR CREATININE Early AM 10/19/2024 6:15 AM CERTIFIED DRUG COUNSELOR POTASSIUM Early AM 10/19/2024 6:15 AM CERTIFIED DRUG COUNSELOR SODIUM Early AM 10/19/2024 6:15 AM CERTIFIED DRUG COUNSELOR GLUCOSE METER Routine 10/19/2024 2:17 AM CERTIFIED DRUG COUNSELOR LACTATE VENOUS Timed 10/18/2024 10:53 PM CERTIFIED DRUG COUNSELOR GLUCOSE METER Routine 10/18/2024 9:06 PM CERTIFIED DRUG COUNSELOR LACTATE VENOUS Timed 10/18/2024 9:00 PM CERTIFIED DRUG COUNSELOR LACTATE VENOUS Today 10/18/2024 6:32 PM CERTIFIED DRUG COUNSELOR AMMONIA Today 10/18/2024 6:32 PM CERTIFIED DRUG COUNSELOR GLUCOSE METER Routine 10/18/2024 6:[address] HEAD BRAIN WO STAT 10/18/2024 6:03 PM CERTIFIED DRUG COUNSELOR URINE CULTURE STEVEN 10/18/2024 12:38 PM CERTIFIED DRUG COUNSELOR URINALYSIS MICROSCOPIC STAT 10/18/2024 12:38 PM CERTIFIED DRUG COUNSELOR UA W/ SEDIMENT EXAM REFLEXED PER CRITERIA STAT 10/18/2024 12:38 PM CERTIFIED DRUG COUNSELOR HEPATIC FUNCTION PANEL STEVEN 10/18/2024 12:14 PM CERTIFIED DRUG COUNSELOR MAGNESIUM STEVEN 10/18/2024 12:14 PM CERTIFIED DRUG COUNSELOR PLATELET ESTIMATE STAT 10/18/2024 12: 14 PM CERTIFIED DRUG COUNSELOR RED CELL MORPHOLOGY STAT 10/18/2024 1 2:14 PM CERTIFIED DRUG COUNSELOR CK TOTAL STAT 10/18/2024 12:14 PM CERTIFIED DRUG COUNSELOR BASIC METABOLIC PANEL STAT 10/18/2024 12:14 PM CERTIFIED DRUG COUNSELOR CBC W PLT NO DIFF STAT 10/18/2024 12: 14 PM CERTIFIED DRUG COUNSELOR EKG 12 LEAD STAT 10/18/2024 12:05 PM CERTIFIED DRUG COUNSELOR ANTI HCV Routine 12/15/2023 9:12 AM CERTIFIED DRUG COUNSELOR Encounter for hepatitis C screening test for low risk patient XR DXA BONE DENSITY 2 SITES AXIAL Routine 09/15/2023 2:39 PM CERTIFIED DRUG COUNSELOR Post-menopausal OCCULT BLOOD IFOBT STOOL Routine 06/12/2023 4:06 PM CDT Screening for colorectal cancer LIPID PANEL W REFLEX MEASURED LDL Routine 05/28/2022 9:59 AM CDT Hyperglycemia - screening for diabetes from Last 3 Months or Most Recently Relevant to Health Maintenance Results * (ABNORMAL) UA W/ SEDIMENT EXAM REFLEXED PER CRITERIA (11/07/2024 11:45 AM CERTIFIED DRUG COUNSELOR) Only the most recent of3 resultswithin the time period is included. COLOR Yellow Yellow Color 11/07/2024 12:[address] [facility] CLARITY Clear Clear Clarity 11/07/2024 12:[address] [facility] SPECIFIC GRAVITY,URINE 1.015 1.010, 1.015, 1.020, 1.025 11/07/2024 12:[address] [facility] PH,URINE 6.5 6.0, 7.0, 8.0, 5.5, 6.5, 7.5, 8.5 11/07/2024 12:[address] [facility] UROBILINOGEN, QUALITATIVE Increased(A) Normal EU/dl 11/07/2024 12:[address] [facility] PROTEIN, URINE Negative Negative mg/dL 11/07/2024 12:[address] [facility] GLUCOSE, URINE Negative Negative mg/dL 11/07/2024 12:[address] [facility] KETONES,URINE Negative Negative mg/dL 11/07/2024 12:[address] [facility] BILIRUBIN,URI NE Negative Negative 11/07/2024 12:[address] [facility] OCCULT BLOOD,URINE Negative Negative 11/07/2024 12:[address] [facility] NITRITE Negative Negative 11/07/2024 12:[address] [facility] LEUKOCYTE ESTERASE Negative Negative 11/07/2024 12:[address] [facility] Urine URINE SPECIMEN / Unknown Non-Blood / Unknown 11/07/2024 11:45 AM CERTIFIED DRUG COUNSELOR 11/07/2024 11:59 AM CERTIFIED DRUG COUNSELOR us Krystyna Monique NP URINE Final Result [facility] [address] [place] [address] * (ABNORMAL) CBC WITH AUTO DIFFERENTIAL (11/02/2024 9:30 AM [facility]) WHITE BLOOD COUNT 4.7 4.5 - 11.0 thou/cu mm 11/02/2024 10:[address] [facility] RED BLOOD COUNT 3.52(L) 4.00 - 5.20 mil/cu mm 11/02/2024 10:[address] [facility] HEMOGLOBIN 9.0(L) 12.0 - 16.0 g/dL 11/02/2024 10:[address] [facility] HEMATOCRIT 29.7(L) 33.0 - 51.0 % 11/02/2024 10:[address] [facility] MCV 84 80 - 100 fL 11/02/2024 10:[address] [facility] MCH 25.6(L) 26.0 - 34.0 pg 11/02/2024 10:[address] [facility] MCHC 30.3(L) 32.0 - 36.0 g/dL 11/02/2024 10:[address] [facility] RDW 18.7(H) 11.5 - 15.5 % 11/02/2024 10:[address] [facility] PLATELET COUNT 62(L) 140 - 440 thou/cu mm 11/02/2024 10:[address] [facility] MPV 11.5(H) 6.5 - 11.0 fL 11/02/2024 10:[address] [facility] % NEUT 55.2 % 11/02/2024 10:[address] [facility] % LYMPH 31.1 % 11/02/2024 10:[address] [facility] % MONO 12.7 % 11/02/2024 10:[address] [facility] % EOS 0.2 % 11/02/2024 10:[address] [facility] % BASO 0.8 % 11/02/2024 10:[address] [facility] ABSOLUTE NEUTROPHILS 2.6 1.7 - 7.0 thou/cu mm 11/02/2024 10:[address] [facility] ABSOLUTE LYMPHOCYTES 1.5 0.9 - 2.9 thou/cu mm 11/02/2024 10:[address] [facility] ABSOLUTE MONOCYTES 0.6 <0.9 thou/cu mm 11/02/2024 10:[address] [facility] ABSOLUTE EOSINOPHILS 0.0 <0.5 thou/cu mm 11/02/2024 10:[address] [facility] ABSOLUTE BASOPHILS 0.0 <0.3 thou/cu mm 11/02/2024 10:[address] [facility] Blood BLOOD SPECIMEN / Unknown Venipuncture / Unknown 11/02/2024 9:30 AM [facility] 11/02/2024 9:30 AM [facility] - 11/02/2024 10:39 AM [facility] This procedure was originally ordered at [facility]. This procedure was originally ordered at [facility]. This procedure was originally ordered at [facility]. us Neetu Villa MD HEMATOLOGY Final Resu lt [facility] [address] [place] [address] * (ABNORMAL) RED CELL MORPHOLOGY (11/02/2024 9:30 AM CERTIFIED DRUG COUNSELOR) Only the most recent of2 resultswithin the time period is included. Pathologist [facility] ELLIPTOCYTES Moderate 11/02/2024 10:[address] [facility] POLYCHROMASIA Slight 11/02/2024 10:[address] [facility] TARGET CELLS Moderate 11/02/2024 10:[address] [facility] RBC COMMENT Present(A) RBC morphology appears normal, RBC morphology within normal limits for newborns. 11/02/2024 10:[address] [facility] Blood BLOOD SPECIMEN / Unknown Venipuncture / Unknown 11/02/2024 9:30 AM CERTIFIED DRUG COUNSELOR 11/02/2024 9:30 AM [facility] - 11/02/2024 10:39 AM CERTIFIED DRUG COUNSELOR This procedure was originally ordered at [facility]. This procedure was originally ordered at [facility]. This procedure was originally ordered at [facility]. Neetu Villa MD HEMATOLOGY Final Resu lt [facility] [address] [place] [address] * (ABNORMAL) PLATELET ESTIMATE (11/02/2024 9:30 AM CERTIFIED DRUG COUNSELOR) Only the most recent of2 resultswithin the time period is included. [facility] PLATELET ESTIMATE Decreased (A) Adequate, No estimate 11/02/2024 10:[address] [facility] Blood BLOOD SPECIMEN / Unknown Venipuncture / Unknown 11/02/2024 9:30 AM CERTIFIED DRUG COUNSELOR 11/02/2024 9:30 AM [facility] - 11/02/2024 10:39 AM CERTIFIED DRUG COUNSELOR This procedure was originally ordered at [facility]. This procedure was originally ordered at [facility]. This procedure was originally ordered at [facility]. Neetu Villa MD HEMATOLOGY Final Resu lt Performing Organization Address City/[facility]/ZIP Co de Phone Number [facility] [address] [place] [address] * (ABNORMAL) IRON PLUS IRON BINDING CAP (11/02/2024 9:30 AM CERTIFIED DRUG COUNSELOR) Pathologist [facility] [place] IRON 21(L) 37 - 145 ug/dL 11/02/2024 12:53 PM CERTIFIED DRUG COUNSELOR [facility] UIBC (UNSATURATED) 250 112 - 347 ug/dL 11/02/2024 12:53 PM CERTIFIED DRUG COUNSELOR [facility] IRON BINDING CAPACITY 271 250 - 400 ug/dL 11/02/2024 12:53 PM CERTIFIED DRUG COUNSELOR [facility] IRON,% SATURATION 8(L) 14 - 50 % 11/02/2024 12:53 PM CERTIFIED DRUG COUNSELOR [facility] Blood BLOOD SPECIMEN / Unknown Venipuncture / Unknown 11/02/2024 9:30 AM CERTIFIED DRUG COUNSELOR 11/02/2024 9:30 AM CERTIFIED DRUG COUNSELOR us Neetu Villa MD CHEMISTRY Final Resu lt Performing Organization Address [facility]/ZIP Co de Phone Number [facility] [address] [place] [address], * (ABNORMAL) LD,TOTAL (11/02/2024 9:30 AM CERTIFIED DRUG COUNSELOR) LD,TOTAL 230(H) 135 - 214 IU/L 11/02/2024 10:19 AM CERTIFIED DRUG COUNSELOR [facility] Blood BLOOD SPECIMEN / Unknown Venipuncture / Unknown 11/02/2024 9:30 AM CERTIFIED DRUG COUNSELOR 11/02/2024 9:30 AM CERTIFIED DRUG COUNSELOR us Neetu Villa MD CHEMISTRY Final Resu lt Performing Organization Address City/[facility]/ZIP Co de Phone Number [facility] [address] [place] [address] * RETICULOCYTES (11/02/2024 9:30 AM CERTIFIED DRUG COUNSELOR) RETIC% 1.5 0.5 - 1.5 % 11/02/2024 12:49 PM CERTIFIED DRUG COUNSELOR [facility] RETIC (ABSOLUTE) 0.05 0.03 - 0.08 mil/cu mm 11/02/2024 12:49 PM CERTIFIED DRUG COUNSELOR [facility] Blood BLOOD SPECIMEN / Unknown Venipuncture / Unknown 11/02/2024 9:30 AM CERTIFIED DRUG COUNSELOR 11/02/2024 9:30 AM CERTIFIED DRUG COUNSELOR Narrative [facility] - 11/02/2024 12:49 PM CERTIFIED DRUG COUNSELOR This procedure was originally ordered at [facility]. us Neetu Villa MD HEMATOLOGY Final Resu lt Performing Organization Address City/[facility]/ZIP Co de Phone Number [facility] [address] [place] [address], [place] * (ABNORMAL) HAPTOGLOBIN (11/02/2024 9:30 AM CERTIFIED DRUG COUNSELOR) Haptoglobin 26(L) 30 - 200 mg/dL 11/02/2024 12:54 PM CERTIFIED DRUG COUNSELOR [facility] Blood BLOOD SPECIMEN / Unknown Venipuncture / Unknown 11/02/2024 9:30 AM CERTIFIED DRUG COUNSELOR 11/02/2024 9:30 AM CERTIFIED DRUG COUNSELOR us Neetu Villa MD CHEMISTRY Final Resu lt [facility] [address] [place] [address], [place] * FERRITIN (11/02/2024 9:30 AM CERTIFIED DRUG COUNSELOR) FERRITIN 32.8 15.0 - 150.0 ng/mL 11/02/2024 12:[address]ERT[address]IED DRUG COUNSELOR [facility] Blood BLOOD SPECIMEN / Unknown Venipuncture / Unknown 11/02/2024 9:30 AM CERTIFIED DRUG COUNSELOR 11/02/2024 9:30 AM CERTIFIED DRUG COUNSELOR us Neetu Villa MD CHEMISTRY Final Resu lt [facility] [address] [place] [address], * (ABNORMAL) COMP METABOLIC PANEL (11/02/2024 9:30 AM [facility]) SODIUM 139 136 - 145 mmol/L 11/02/2024 9:[address] [facility] POTASSIUM 3.6 3.5 - 5.1 mmol/L 11/02/2024 9:[address] [facility] CHLORIDE 107 98 - 107 mmol/L 11/02/2024 9:[address] [facility] CO2,TOTAL 26 22 - 29 mmol/L 11/02/2024 9:[address] [facility] ANION GAP 6 5 - 18 11/02/2024 9:[address] [facility] GLUCOSE 102(H) 70 - 99 mg/dL 11/02/2024 9:[address] [facility] CALCIUM 8.7(L) 8.8 - 10.4 mg/dL 11/02/2024 9:[address] [facility] Comment: Reference ranges for this test were updated on 09/12/2024 to reflect our healthy population more accurately. Reference range changes are not retroactively applied to results, but previous results using the same methodology can be interpreted in the context of the new reference range. BUN 8 8 - 23 mg/dL 11/02/2024 9:[address] [facility] CREATININE 0.99(H) 0.50 - 0.90 mg/dL 11/02/2024 9:[address] [facility] BUN/CREAT RATIO 8(L) 10 - 20 9:[address] [facility] eGFR 61(L) >90 mL/min/1. 73m2 11/02/2024 9:[address] [facility] Comment:As of 2022, eG FR is calculated by the CKD-EPI creatinine equation without race adjustment. eGFR can be influenced by muscle mass, exercise, and diet. The reported eGFR is an estimation only and is only applicable if the renal function is stable. ALBUMIN 3.0(L) 4.0 - 4.9 g/dL 11/02/2024 9:[address] [facility] PROTEIN,TOTAL 6.2 6.0 - 8.0 g/dL 11/02/2024 9:[address] [facility] BILIRUBIN,TOTAL 1.0 0.0 - 1.2 mg/dL 11/02/2024 9:[address] [facility] ALK PHOSPHATASE 288(H) 35 - 104 IU/L 11/02/2024 9:[address] [facility] ALT (SGPT) 19 10 - 35 IU/L 11/02/2024 9:[address] [facility] AST (SGOT) 39(H) 10 - 35 IU/L 11/02/2024 9:[address] [facility] Blood BLOOD SPECIMEN / Unknown Venipuncture / Unknown 11/02/2024 9:30 AM CERTIFIED DRUG COUNSELOR 11/02/2024 9:30 AM CERTIFIED DRUG COUNSELOR us Neetu Villa MD CHEMISTRY Final Resu lt [facility] [address] [place] [address] * XR MAMMO ANTONIO BILAT DIAG (10/31/2024 9:15 AM CERTIFIED DRUG COUNSELOR) Anatomical Region Laterality Modality BREASTS, Breast Left, Breast Right Bilateral Mammography, Other 10/31/2024 9:38 AM CERTIFIED DRUG COUNSELOR Impressions 11/02/2024 6:31 AM CERTIFIED DRUG COUNSELOR No evidence of malignancy. Recommend annual screening mammography. BI-RADS Category 1: Negative Dictated by: Cristi Carlson MD @10/31/2024 9:38:58 AM /sp PATIENTS: You will also receive a letter with your examination results in an easy to read format. If you have questions about your results, please contact your referring provider. Narrative 11/02/2024 6:31 AM CERTIFIED DRUG COUNSELOR As a result of the 21st Century Cures Act, medical imaging exams and procedure reports are released immediately into your electronic medical record. You may view this report before your referring provider. If you have questions, please contact your health care provider. BILATERAL DIGITAL DIAGNOSTIC MAMMOGRAM WITH TOMOSYNTHESIS 10/31/2024 INDICATION: Follow-up skin thickening LEFT breast. TECHNIQUE: BILATERAL diagnostic mammogram with tomosynthesis. COMPARISON: 10/06/2023 and 06/09/2023. BREAST COMPOSITION: There are scattered areas of fibroglandular density. FINDINGS: No suspicious mass, architectural distortion or malignant calcification in either breast. Skin thickening noted on the previous study has resolved. Neetu Villa MD MAMMO Final Resu lt * (ABNORMAL) URINALYSIS MICROSCOPIC (10/26/2024 11:32 AM CERTIFIED DRUG COUNSELOR) Only the most recent of2 resultswithin the time period is included. Pathologist [facility] [place] RBC 3-5(A) 0-2, None Seen /HPF 10/26/2024 12:[address] [facility] WBC 0-2 0-2, 3-5, None Seen /HPF 10/26/2024 12:[address] [facility] BACTERIA Few None Seen, Rare, Few Bacteria/H PF 10/26/2024 12:[address] [facility] EPITHELIAL CELLS Few None Seen, Few Epi/HPF 10/26/2024 12:[address] [facility] HYALINE CASTS 0-2 0-2, 3-5 /LPF 10/26/2024 12:[address] [facility] Urine URINE SPECIMEN / Unknown Non-Blood / Unknown 10/26/2024 11:32 AM CERTIFIED DRUG COUNSELOR 10/26/2024 11:32 AM CERTIFIED DRUG COUNSELOR Jolynn Shaffer DO URINE Final Result [facility] [address] [place] [address] * (ABNORMAL) CBC AND DIFFERENTIAL (10/26/2024 11:19 AM CERTIFIED DRUG COUNSELOR) WHITE BLOOD CELL COUNT 6.1 3.8 - 10.8 Thousand/u L [facility] RED BLOOD CELL COUNT 3.56(L) 3.80 - 5.10 Million/uL [facility] HEMOGLOBIN 9.2(L) 11.7 - 15.5 g/dL [facility] HEMATOCRIT 29.1(L) 35.0 - 45.0 % [facility] MCV 81.7 80.0 - 100.0 fL [facility] MCH 25.8(L) 27.0 - 33.0 pg [facility] MCHC 31.6(L) 32.0 - 36.0 g/dL [facility] Comment: For adults, a slight decrease in the calculated MCHC value (in the range of 30 to 32 g/dL) is most likely not clinically significant; however, it should be interpreted with caution in correlation with other red cell parameters and the patient's clinical condition. RDW 15.9(H) 11.0 - 15.0 % [facility] PLATELET COUNT 78(L) 140 - 400 Thousand/u L [facility] MPV 11.7 7.5 - 12.5 fL [facility] ABSOLUTE NEUTROPHILS 3,678 1,500 - 7,800 cells/uL [facility] ABSOLUTE LYMPHOCYTES 1,623 850 - 3,900 cells/uL [facility] ABSOLUTE MONOCYTES 665 200 - 950 cells/uL [facility] ABSOLUTE EOSINOPHILS 73 15 - 500 cells/uL [facility] ABSOLUTE BASOPHILS 61 0 - 200 cells/uL [facility] NEUTROPHILS 60.3 % [facility] LYMPHOCYTES 26.6 % [facility] MONOCYTES 10.9 % [facility] EOSINOPHILS 1.2 % [facility] BASOPHILS 1.0 % [facility] Blood BLOOD SPECIMEN / Unknown 10/26/2024 11:19 AM CERTIFIED DRUG COUNSELOR 10/26/2024 11:20 AM CERTIFIED DRUG COUNSELOR Narrative [facility] - 10/27/2024 4:56 AM CERTIFIED DRUG COUNSELOR FASTING:NO FASTING: NO Chhaya Gerth DO HEMATOLOGY Final Result Performing Organization Address [facility] de Phone Number [facility] [address] [place] [address], [facility] [address] [place] [address] * AMMONIA (10/26/2024 11:19 AM CERTIFIED DRUG COUNSELOR) Only the most recent of5 resultswithin the time period is included. AMMONIA (P) 47 < OR = 72 umol/L [facility] Blood BLOOD SPECIMEN / Unknown 10/26/2024 11:19 AM CERTIFIED DRUG COUNSELOR 10/26/2024 11:20 AM CERTIFIED DRUG COUNSELOR Narrative [facility] - 10/27/2024 4:16 PM CERTIFIED DRUG COUNSELOR FASTING:NO FASTING: NO Jolynn Shaffer DO CHEMISTRY Final Result Performing Organization Address [facility] de Phone Number [facility] [employer] [employer] [facility] [address] [place] [address], [facility] [address] [place] [address] * (ABNORMAL) LIVER PANEL (HEPATIC FUNCTION PANEL) (10/26/2024 11:19 AM CERTIFIED DRUG COUNSELOR) Only the most recent of2 resultswithin the time period is included. PROTEIN, TOTAL 6.2 6.1 - 8.1 g/dL [facility] ALBUMIN 3.0(L) 3.6 - 5.1 g/dL [facility] GLOBULIN 3.2 1.9 - 3.7 g/dL (calc) [facility] ALBUMIN/GLOBULIN RATIO 0.9(L) 1.0 - 2.5 (calc) [facility] BILIRUBIN, TOTAL 1.4(H) 0.2 - 1.2 mg/dL [facility] BILIRUBIN, DIRECT 0.4(H) < OR = 0.2 mg/dL [facility] BILIRUBIN, INDIRECT 1.0 0.2 - 1.2 mg/dL (calc) [facility] ALKALINE PHOSPHATASE 201(H) 37 - 153 U/L [facility] AST 36(H) 10 - 35 U/L [facility] ALT 20 6 - 29 U/L [facility] Blood BLOOD SPECIMEN / Unknown 10/26/2024 11:19 AM CERTIFIED DRUG COUNSELOR 10/26/2024 11:20 AM CERTIFIED DRUG COUNSELOR Narrative [facility] - 10/27/2024 4:56 AM CERTIFIED DRUG COUNSELOR FASTING:NO FASTING: NO Jolynn Shaffer DO CHEMISTRY Final Result [employer] [facility] [address] [place] [address], [facility] [address] [place] [address] * (ABNORMAL) BASIC METABOLIC PANEL (10/26/2024 11:19 AM CERTIFIED DRUG COUNSELOR) Only the most recent of3 resultswithin the time period is included. GLUCOSE 113 65 - 139 mg/dL [facility] Comment: Non-fasting reference interval UREA NITROGEN (BUN) 8 7 - 25 mg/dL [facility] CREATININE 1.11(H) 0.60 - 1.00 mg/dL [facility] EGFR 53(L) > OR = 60 mL/min/1.7 3m2 [facility] BUN/CREATININE RATIO 7 6 - 22 (calc) [facility] SODIUM 138 135 - 146 mmol/L [facility] POTASSIUM 3.5 3.5 - 5.3 mmol/L [facility] CHLORIDE 110 98 - 110 mmol/L [facility] CARBON DIOXIDE 23 20 - 32 mmol/L [facility] ELECTROLYTE BALANCE 5(L) 7 - 17 mmol/L (calc) [facility] CALCIUM 8.5(L) 8.6 - 10.4 mg/dL [facility] Blood BLOOD SPECIMEN / Unknown 10/26/2024 11:19 AM CERTIFIED DRUG COUNSELOR 10/26/2024 11:20 AM CERTIFIED DRUG COUNSELOR Narrative [facility] - 10/27/2024 4:56 AM CERTIFIED DRUG COUNSELOR FASTING:NO FASTING: NO Jolynn Shaffer DO CHEMISTRY Final Result [facility] [address] [place] [address], [facility] [address] [place] [address] * GLUCOSE METER (10/22/2024 9:00 AM CERTIFIED DRUG COUNSELOR) Only the most recent of19 resultswithin the time period is included. GLUCOSE METER 83 65 - 100 mg/dL 10/22/2024 9:[address] [facility] Blood BLOOD SPECIMEN / Unknown 10/22/2024 9:00 AM CERTIFIED DRUG COUNSELOR 10/22/2024 9:04 AM CERTIFIED DRUG COUNSELOR Mauro Brock Don DO CHEMISTRY Elenita l Result [facility] [address] [place] [address] * (ABNORMAL) CBC W PLT NO DIFF (10/22/2024 5:12 AM CERTIFIED DRUG COUNSELOR) Only the most recent of2 resultswithin the time period is included. WHITE BLOOD COUNT 5.0 4.5 - 11.0 thou/cu mm 10/22/2024 5:[address] [facility] RED BLOOD COUNT 3.23(L) 4.00 - 5.20 mil/cu mm 10/22/2024 5:[address] [facility] HEMOGLOBIN 8.1(L) 12.0 - 16.0 g/dL 10/22/2024 5:[address] [facility] HEMATOCRIT 26.8(L) 33.0 - 51.0 % 10/22/2024 5:[address] [facility] MCV 83 80 - 100 fL 10/22/2024 5:[address] [facility] MCH 25.1(L) 26.0 - 34.0 pg 10/22/2024 5:[address] [facility] MCHC 30.2(L) 32.0 - 36.0 g/dL 10/22/2024 5:[address] [facility] RDW 18.1(H) 11.5 - 15.5 % 10/22/2024 5:[address] [facility] PLATELET COUNT 60(L) 140 - 440 thou/cu mm 10/22/2024 5:[address] [facility] MPV 10.9 6.5 - 11.0 fL 10/22/2024 5:[address] [facility] Blood BLOOD SPECIMEN / Unknown Butterfly / Unknown 10/22/2024 5:12 AM CERTIFIED DRUG COUNSELOR 10/22/2024 5:15 AM CERTIFIED DRUG COUNSELOR us Harry Flores OL[employer]URE TEACHER HEMATOLOGY Final Result [facility] [address] [place] [address] * MAGNESIUM (10/22/2024 5:12 AM CERTIFIED DRUG COUNSELOR) Only the most recent of5 resultswithin the time period is included. MAGNESIUM 2.0 1.6 - 2.4 mg/dL 10/22/2024 5:[address] [facility] Blood BLOOD SPECIMEN / Unknown Butterfly / Unknown 10/22/2024 5:12 AM CERTIFIED DRUG COUNSELOR 10/22/2024 5:15 AM CERTIFIED DRUG COUNSELOR us Zbigniew Bautista OLERICULTURE TEACHER CHEMISTRY Fin al Result [facility] [address] [place] [address] * (ABNORMAL) PLATELET COUNT (10/21/2024 6:51 AM CERTIFIED DRUG COUNSELOR) Only the most recent of2 resultswithin the time period is included. PLATELET COUNT 57(L) 140 - 440 thou/cu mm 10/21/2024 8:51 AM CERTIFIED DRUG COUNSELOR [facility] MPV 12.2(H) 6.5 - 11.0 fL 10/21/2024 8:51 AM CERTIFIED DRUG COUNSELOR [facility] Blood BLOOD SPECIMEN / Unknown Butterfly / Unknown 10/21/2024 6:51 AM CERTIFIED DRUG COUNSELOR 10/21/2024 6:58 AM CERTIFIED DRUG COUNSELOR Mauro Don DO HEMATOLOGY Elenita l Result Performing Organization Address City/[facility]/ZIP Co de Phone Number [facility] [address] [place] [address] * (ABNORMAL) HEMOGLOBIN (10/21/2024 6:51 AM CERTIFIED DRUG COUNSELOR) Only the most recent of4 resultswithin the time period is included. HEMOGLOBIN 8.6(L) 12.0 - 16.0 g/dL 10/21/2024 7:06 AM CERTIFIED DRUG COUNSELOR [facility] MCV 84 80 - 100 fL 10/21/2024 7:[address] [facility] Blood BLOOD SPECIMEN / Unknown Butterfly / Unknown 10/21/2024 6:51 AM CERTIFIED DRUG COUNSELOR 10/21/2024 6:58 AM CERTIFIED DRUG COUNSELOR Zbigniew Bautista OLERICULTURE TEACHER HEMATOLOGY Fin al Result [facility] [address] [place] [address] * SODIUM (10/21/2024 6:51 AM CERTIFIED DRUG COUNSELOR) Only the most recent of3 resultswithin the time period is included. SODIUM 141 136 - 145 mmol/L 10/21/2024 7:26 AM CERTIFIED DRUG COUNSELOR [facility] Blood BLOOD SPECIMEN / Unknown Butterfly / Unknown 10/21/2024 6:51 AM CERTIFIED DRUG COUNSELOR 10/21/2024 6:58 AM CERTIFIED DRUG COUNSELOR Zbigniew Bautista OLERICULTURE TEACHER CHEMISTRY Fin al Result Performing Organization Address City/[facility] Co de Phone Number [facility] [address] [place] [address] * POTASSIUM (10/21/2024 6:51 AM CERTIFIED DRUG COUNSELOR) Only the most recent of3 resultswithin the time period is included. POTASSIUM 3.6 3.5 - 5.1 mmol/L 10/21/2024 7:[address] [facility] Blood BLOOD SPECIMEN / Unknown Butterfly / Unknown 10/21/2024 6:51 AM CERTIFIED DRUG COUNSELOR 10/21/2024 6:58 AM CERTIFIED DRUG COUNSELOR Zbigniew Bautista OLERICULTURE TEACHER CHEMISTRY Fin al Result Performing Organization Address [facility] Phone Number [facility] [address] [place] [address] * (ABNORMAL) CREATININE (10/21/2024 6:51 AM CERTIFIED DRUG COUNSELOR) Only the most recent of3 resultswithin the time period is included. eGFR 57(L) >90 mL/min/1.7 3m2 10/21/2024 7:[address] [facility] Comment:As of 2022, eG FR is calculated by the CKD-EPI creatinine equation without race adjustment. eGFR can be influenced by muscle mass, exercise, and diet. The reported eGFR is an estimation only and is only applicable if the renal function is stable. CREATININE 1.05(H) 0.50 - 0.90 mg/dL 10/21/2024 7:[address] [facility] Blood BLOOD SPECIMEN / Unknown Butterfly / Unknown 10/21/2024 6:51 AM CERTIFIED DRUG COUNSELOR 10/21/2024 6:58 AM CERTIFIED DRUG COUNSELOR Zbigniew Bautista OLERICULTURE TEACHER CHEMISTRY Fin al Result Performing Organization Address [facility] Co de Phone Number [facility] [address] [place] [address] * BLOOD CULTURE (10/19/2024 5:30 PM CERTIFIED DRUG COUNSELOR) Only the most recent of2 resultswithin the time period is included. Pathologist [facility] CULTURE No Growth. 10/24/2024 9:16 PM CERTIFIED DRUG COUNSELOR [facility] Blood BLOOD SPECIMEN / Unknown Butterfly / Unknown 10/19/2024 5:30 PM CERTIFIED DRUG COUNSELOR 10/19/2024 5:40 PM CERTIFIED DRUG COUNSELOR Zbigniew Bautista NP MICROBIOLOGY Fin al Result [facility] [address] [place] [address] * (ABNORMAL) MRSA/SA PCR (10/19/2024 5:12 PM CERTIFIED DRUG COUNSELOR) [facility] MRSA DNA PCR Negative Negative 10/20/2024 3:00 PM CERTIFIED DRUG COUNSELOR [facility] STAPHYLOCOCCUS AUREUS PCR Positive(A) Negative 10/20/2024 3:00 PM CERTIFIED DRUG COUNSELOR [facility] Other SPECIMEN FROM INTERNAL NOSE / Unknown Non-Blood / Unknown 10/19/2024 5:12 PM CERTIFIED DRUG COUNSELOR 10/19/2024 6:01 PM CERTIFIED DRUG COUNSELOR Narrative [facility] - 10/20/2024 3:00 PM CERTIFIED DRUG COUNSELOR S. aureus detected; NOT MRSA. Test result does not preclude MRSA nasal colonization. False negative for MRSA could be obtained if MRSA present in the sample is below threshold of detection. Zbigniew Bautista NP MICROBIOLOGY Fin al Result [facility] [address] [place] [address], * WHITE BLOOD COUNT (10/19/2024 6:15 AM CERTIFIED DRUG COUNSELOR) WHITE BLOOD COUNT 6.4 4.5 - 11.0 thou/cu mm 10/19/2024 7:27 AM CERTIFIED DRUG COUNSELOR [facility] Blood BLOOD SPECIMEN / Unknown Venipuncture / Unknown 10/19/2024 6:15 AM CERTIFIED DRUG COUNSELOR 10/19/2024 7:16 AM CERTIFIED DRUG COUNSELOR Fabiana Bermudez NP HEMATOLOGY Elenita l Result [facility] [address] [place] [address] * (ABNORMAL) LACTATE VENOUS (10/18/2024 10:53 PM CERTIFIED DRUG COUNSELOR) Only the most recent of3 resultswithin the time period is included. LACTATE,VENOUS 2.1(H) 0.5 - 2.0 mmol/L 10/18/2024 11:51 PM CERTIFIED DRUG COUNSELOR [facility] Blood BLOOD SPECIMEN / Unknown Butterfly / Unknown 10/18/2024 10:53 PM CERTIFIED DRUG COUNSELOR 10/18/2024 10:56 PM CERTIFIED DRUG COUNSELOR Fabiana Bermudez NP CHEMISTRY Elenita l Result [facility] [address] [place] [address] * CT HEAD BRAIN WO (10/18/2024 6:03 PM CERTIFIED DRUG COUNSELOR) Anatomical Region Laterality Modality HEAD, BRAIN Computed Tomogra phy 10/18/2024 6:25 PM CERTIFIED DRUG COUNSELOR Impressions 10/18/2024 6:25 PM CERTIFIED DRUG COUNSELOR 1. No radiographic evidence of acute intracranial abnormalities. 2. Mild cerebral atrophy. 3. Mild supratentorial white matter changes that are non-specific, but statistically most likely related to chronic small vessel ischemic disease. Please note that all CT scans at this facility use dose modulation, iterative reconstruction, and/or weight-based dosing when appropriate to reduce radiation dose to as low as reasonably achievable. Dictated by Juan Rodriguez MD @ 10/18/2024 6:25:44 PM (Electronically Signed) Narrative 10/18/2024 6:25 PM CERTIFIED DRUG COUNSELOR For Patients: As a result of the Century Cures Act, medical imaging exams and procedure reports are released immediately into your electronic medical record. You may view this report before your referring provider. If you have questions, please contact your health care provider. INDICATION: Mental status change TECHNIQUE: Noncontrast axial CT of the head is submitted. Compared to prior study from March 14, 2024. FINDINGS: Mild cerebral atrophy. The ventricles, sulci and gyri are of normal size, shape and contour for age and degree of atrophy. Midline structures are centrally located. No convincing evidence of suspicious intra- or extra-axial fluid collections. Mild patchy regions of decreased attenuation within the periventricular and subcortical white matter of both cerebral hemispheres. Procedure Note Humza Rodriguez, - 10/18/2024 For Patients: As a result of the Century Cures Act, medical imagingexams and procedure reports are released immediately into your electronicmedical record. You may view this report before your referring provider.If you have questions, please contact your health care provider. INDICATION: Mental status change TECHNIQUE: Noncontrast axial CT of the head is submitted. Compared to prior studyfrom March 14, 2024. FINDINGS: Mild cerebral atrophy. The ventricles, sulci and gyri are of normal size,shape and contour for age and degree of atrophy. Midline structures arecentrally located. No convincing evidence of suspicious intra- orextra-axial fluid collections. Mild patchy regions of decreasedattenuation within the periventricular and subcortical white matter ofboth cerebral hemispheres. IMPRESSION: 1. No radiographic evidence of acute intracranial abnormalities. 2. Mild cerebral atrophy. 3. Mild supratentorial white matter changes that are non-specific, butstatistically most likely related to chronic small vessel ischemicdisease. Please note that all CT scans at this facility use dose modulation,iterative reconstruction, and/or weight-based dosing when appropriate toreduce radiation dose to as low as reasonably achievable. Dictated by Juan Rodriguez MD @ 10/18/2024 6:25:44 PM (Electronically Signed) Fabiana Bermudez NP CT Elenita l Result * (ABNORMAL) URINE CULTURE (10/18/2024 12:38 PM CERTIFIED DRUG COUNSELOR) CULTURE RESULT(A) 10/20/2024 12:37 PM CERTIFIED DRUG COUNSELOR [facility] CULTURE >100,000 CFU/mL Staphylococcus aureus 10/20/2024 12:37 PM CERTIFIED DRUG COUNSELOR [facility] Urine URINE SPECIMEN / Unknown Non-Blood / Unknown 10/18/2024 12:38 PM CERTIFIED DRUG COUNSELOR 10/18/2024 12:56 PM CERTIFIED DRUG COUNSELOR Narrative Organism Antibiotic Method Susceptibility Staphylococcus aureus OXACILLIN 0.5: S Comment:Oxacillin collado sceptible should not be interpreted as penicillin or amoxicillin susceptible. Staphylococcus aureus DOXYCYCLINE <=0.5: S Staphylococcus aureus CEFAZOLIN S Staphylococcus aureus TRIMETHOPRIM/SULF <=0.5/9.5: S Staphylococcus aureus NITROFURANTOIN <=16: S us Fabiana Bermudez OLERICULTURE TEACHER MICROBIOLOGY Elenita l Result [facility] [address] [place] [address], * CK TOTAL (10/18/2024 12:14 PM CERTIFIED DRUG COUNSELOR) CK,TOTAL 47 26 - 192 IU/L 10/18/2024 12:50 PM CERTIFIED DRUG COUNSELOR [facility] Blood BLOOD SPECIMEN / Unknown Butterfly / Unknown 10/18/2024 12:14 PM CERTIFIED DRUG COUNSELOR 10/18/2024 12:29 PM CERTIFIED DRUG COUNSELOR Dylan Melendez MD CHEMISTRY Final Re sult [facility] [address] [place] [address] * EKG 12 LEAD (10/18/2024 12:05 PM CERTIFIED DRUG COUNSELOR) Interpretation Sinus rhythm with occasional Premature ventricular complexes and Premature atrial complexes Right bundle branch block Minimal voltage criteria for LVH, may be normal variant When compared with ECG of 22-Jul-2024 10:21, Sinus rhythm has replaced Electronic atrial pacemaker BEYOND NOW Ventricular Rate 69 BPM BEYOND NOW Atrial Rate 69 BPM BEYOND NOW P-R Interval 170 ms BEYOND NOW QRS Duration 156 ms BEYOND NOW QT 498 ms BEYOND NOW QTc 533 ms BEYOND NOW P [place] 63 degrees BEYOND NOW R [place] -16 degrees BEYOND NOW T [place] 13 degrees BEYOND NOW 10/18/2024 12:0 5 PM CERTIFIED DRUG COUNSELOR 10/18/2024 1:08 PM CERTIFIED DRUG COUNSELOR Dylan Melendez MD EKG ORD Final Re sult Performing Organization Address City/[facility] Co de Phone Number [facility] NOW [place], [place] * ANTI HCV (12/15/2023 9:12 AM CERTIFIED DRUG COUNSELOR) HEPATITIS C ANTIBODY Non-Reacti ve Non-React patricia 12/15/2023 9:23 PM CERTIFIED DRUG COUNSELOR [facility] Comment:Please note, per www .CDC.gov: If a patient is known to be at high risk of HCV infection, or is symptomatic, and the physician's suspicion of HCV infection is high, HCV RNA testing is often employed and is of diagnostic value, even after an initial negative anti-HCV test result. Blood BLOOD SPECIMEN / Unknown Butterfly / Unknown 12/15/2023 9:12 AM CERTIFIED DRUG COUNSELOR 12/15/2023 9:14 AM CERTIFIED DRUG COUNSELOR Edis Stevenson MD SEND OUTS Final Result Performing Organization Address [facility] Co de Phone Number [email or web address] [address] [place] [address], [place] * (ABNORMAL) XR DXA BONE DENSITY 2 SITES AXIAL (09/15/2023 2:39 PM CERTIFIED DRUG COUNSELOR) Anatomical Region Laterality Modality Spine, HIPS, HIPL, HIPR Computed Radiography Impressions 09/16/2023 3:20 PM CERTIFIED DRUG COUNSELOR Osteopenia. Fracture risk is not elevated. RECOMMENDATIONS: The National Osteoporosis Foundation recommends pharmacologic treatment for patients with T-scores of -2.5 or less, patients with prior history of fragility fractures, or patients with 10-year probability of greater than 3% at hips or greater than 20% of suffering major osteoporotic fractures. Recommend continued optimization of calcium and vitamin D intake through dietary means and/or supplementation and regular exercise. Repeat scan recommended in 5 years. 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 This means that you may see your results before your provider has had a chance to review them. Please allow 2-3 business days for your provider to comment on the results. XR DXA Bone Mineral Density (BMD) EXAM LOCATION: [address] [id number] PATIENT NAME: Jessica Hidalgo DATE OF : 1950 EXAM DATE: 09/15/2023 REQUESTING PROVIDER: Edis Stevenson MD GENDER AT : female HEIGHT: 5' 3 (03/09/2023) WEIGHT: 205 lb 3.2 oz (09/13/2023) MENOPAUSAL STATUS: Postmenopausal RACE/ETHNICITY: White RISK FACTORS: none CURRENT MEDICATION FOR BONE LOSS: NONE INDICATION: Postmenopausal COMPARISON DATE(S): None DXA scans are compared to prior studies for a patient only when the two (or more) studies were performed on the same scanner. It is not possible to compare data generated on one scanner to data from another because there are not standards in DXA equipment. This applies even if the two scanners are made by the same warehouse assistant. PROCEDURE: Dual-energy x-ray absorptiometry performed with routine technique. Reporting is completed in the form of a T-score. The T-score represents the standard deviation from peak bone mass based on young healthy adult. A Z-score is used for diagnosis in premenopausal women, and for men under the age of 50. FINDINGS: RESULT LUMBAR SPINE L1 - L4 BMD: 0.933 g/cm2 T-Score: - 2.1 RESULTS FEMUR Left femoral neck BMD: 0.865 g/cm2 T-Score: - 1.2 Right femoral neck BMD: 0.827 g/cm2 T-Score: - 1.5 Left hip BMD: 0.864 g/cm2 T-Score: - 1.1 Right hip BMD: 0.914 g/cm2 T-Score: - 0.7 WHO criteria: Normal: T-score at or above -1 SD Osteopenia: T-score between -1.1 and -2.4 SD Osteoporosis: T-score at or below -2.5 SD FRAX RISK CALCULATION (USED FOR OSTEOPENIA ONLY): 10-year probability of major osteoporotic fracture: 9.5%. 10-year probability of hip fracture: 1.4%. us Edis Stevenson MD DEXA Final Result * OCCULT BLOOD IFOBT STOOL (06/12/2023 4:06 PM CDT) STOOL BLOOD ,IFOBT Negative Negative 06/16/2023 8:45 AM CDT [facility] Stool STOOL SPECIMEN / Unknown Non-Blood / Unknown 06/12/2023 4:06 PM CDT 06/15/2023 4:06 PM CDT Edis Stevenson MD LABORATORY Final Result [facility] [address] [place] [address], * LIPID PANEL W REFLEX MEASURED LDL (05/28/2022 9:59 AM CDT) CHOLESTEROL,TOTAL 122 100 - 199 mg/dL 05/28/2022 10:58 AM [facility] TRIGLYCERIDES 115 <150 mg/dL 05/28/2022 10:58 AM [facility] HDL CHOLESTEROL 44 >40 mg/dL 10:58 AM [facility] NON-HDL CHOLESTEROL 78 <145 mg/dl 05/28/2022 10:58 AM [facility] CHOL/HDL RATIO 2.77 <4.50 05/28/2022 10:58 AM [facility] LDL CHOLESTEROL 55 <=130 mg/dL 05/28/2022 10:58 AM [facility] VLDL CHOLESTEROL 23 <=30 mg/dL 05/28/2022 10:58 AM [facility] PROVIDER ORDERED STATUS RANDOM 05/28/2022 10:58 AM [facility] Blood BLOOD SPECIMEN / Unknown Venipuncture / Unknown 05/28/2022 9:59 AM CDT 05/28/2022 10:01 AM CDT Edis Stevenson MD CHEMISTRY Final Result [facility] [address] [place] [id number] from Last 3 Months or Most Recently Relevant to Health Maintenance Insurance [facility] [employer] PPS MEDICARE PART A HB ONLY [employer] CHOICE PPO MR Advance Directives Documents on File Type Date Recorded 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 Healthcare Directive 09/24/2021 021 * DNR (Latest Code Status on File) Date Activated Date Inactivated Comments 10/18/2024 5:32 PM 10/22/2024 2:13 PM Question Answer Comments Code Status Discussion: Reviewed Preferences * DNR Date Activated Date Inactivated Comments 07/22/2024 1:52 PM 07/25/2024 1:56 PM Question Answer Comments Code Status Discussion: Reviewed Preferences * Full Code Date Activated Date Inactivated Comments 07/22/2024 1:08 PM 07/22/2024 1:51 PM Question Answer Comments Code Status Discussion: Unable to Assess Preferences, Provider to review later * Full Code Date Activated Date Inactivated Comments 03/14/2024 4:49 PM 03/15/2024 3:39 PM Question Answer Comments Code Status Discussion: Reviewed Preferences * Full Code Date Activated Date Inactivated Comments 10/25/2023 6:31 AM 10/25/2023 11:27 AM Question Answer Comments Code Status Discussion: Discussed Care Teams Thread Spooler Relationship Specialty Start Date End Date Jolynn Shaffer DO [address] [facility] [place] [id number] PCP - General Family Practice 07/17/[address] [place] [address] 01/18/22 Neetu Villa MD [address] [place] [address] Medical Oncologist Hematology 02/09/22 Krystyna Monique NP [address] [facility] [place] [address] Nurse Practitioner Hematology 02/09/22
== END 2024-11-27 09:32 | disposition home or self-care (01) ==
PROVIDERS: PCP Family Medicine; Visit Provider Nurse Practitioner Family
DX: I87.312 Chronic venous hypertension (idiopathic) with ulcer of left lower extremity (principal); I87.2 Venous insufficiency (chronic) (peripheral); I89.0 Lymphedema, not elsewhere classified; L97.828 Non-pressure chronic ulcer of other part of left lower leg with other specified severity
CPT/HCPCS: 11042